=== PATIENT | male | born 1945 | race Caucasian/White ===

== ENCOUNTER 2017-11-27 09:55 | Day surgery (SDC) | payer MEDICARE, BC, SELFPAY ==
--- NOTE | 2017-11-25 09:36 | W.PIPPEYE ---
History of Present Illness Chief Complaint: Progressive decreased vision, left eye Narrative: The patient is a 71-year old gentleman who is pre-of the undergone cataract surgery in the right eye in 2017. He has an uncorrected visual acuity of 20/20 in the right eye. He has noticed progressive decreased vision in his left eye at both distance and near. He notes significant difficulty with glare from bright sunlight and headlights. The option of cataract surgery was offered to the patient and he wished to proceed. He has a moderate nuclear and cortical cataract present in the left eye. NOTE: The Chief Complaint, HPI, Past Medical History, Past Surgical History, Family History, Social History, Medications, and complete Ophthalmic Exam with detailed Assessment and Plan have already been documented in the patient's outpatient ophthalmic record and are not covered again in detail here. PFSH Medical History Pseudophakia, right eye (Chronic 09/05/16) Cortical cataract of left eye (Acute) Nuclear sclerotic cataract of left eye (Acute) Social History Smoking/Tobacco Use Status: Current-Occasional Meds Home Medications Medication Instructions Recorded Confirmed Type sertraline 50 mg PO DAILY 08/31/16 09/05/16 History sildenafil (antihypertensive) 0.5 tab PO PRN PRN 11/21/17 11/21/17 History [Revatio] Allergies Allergy/AdvReac Type Severity Reaction Status Date / Time No Known Allergies Allergy Unverified 09/05/16 08:14 Exam OCULAR EXAM:: Visual acuity at distance: Uncorrected 20/20 right eye, corrected 20/30 left eye Pupils: Pupils equal, round, and reactive without afferent pupillary defect Extraocular Motility: Normal Pertinent Slit Lamp Findings: Significant for pupils dilating to 7 mm OU. Well-positioned PCIOL OD with clear posterior capsule. A 2+ nuclear cataract with 1+ cortical cataract is present OS. Dilated Funduscopic Examination: Disc cupping is 0.3 OU with good color OD, slight pallor OS. There is an epiretinal membrane present in the right macula. Peripheral retina and vitreous is normal. The left macula is normal, with normal peripheral retina and vitreous. BRIGHTNESS ACUITY TESTING (BAT):: Off left eye 20/30 Low: 20/30 Medium: 20/40 High: 20/50 Assessment and Plan (1) Nuclear sclerotic cataract of left eye: Current visit: No Status: Acute Assessment: Visually significant cataract, left eye. Plan: Cataract extraction with intraocular lens implantation, left eye (2) Cortical cataract of left eye: Current visit: No Status: Acute Assessment: Visually significant cataract, left eye. Plan: Cataract extraction with intraocular lens implantation, left eye Note: NOTE:: The details of the planned surgery, including the risks, indications,limitations,expectations,outcome and possible complications were explained to the patient. The patient understands the complications including, but not limited to: infection, hemorrhage, posterior dislocation of the lens or nuclear fragments which may require the intervention of a vitreoretinal surgeon, possible loss of the eye, or from anesthetic complications. The patient has been made aware of the option of not having surgery, that vision following surgery may not be equal to that prior to surgery, and that the planned surgery may not achieve the intended results. Following this discussion, which the patient appeared to understand, the patient wishes to proceed with cataract surgery with lens implantation of the affected eye to improve and maximize vision.
--- NOTE | 2017-11-25 09:41 | POEE_ITS ---
History of Present Illness Chief Complaint: Progressive decreased vision, left eye Narrative: The patient is a 71-year old gentleman who is pre-of the undergone cataract surgery in the right eye in 2017. He has an uncorrected visual acuity of 20/20 in the right eye. He has noticed progressive decreased vision in his left eye at both distance and near. He notes significant difficulty with glare from bright sunlight and headlights. The option of cataract surgery was offered to the patient and he wished to proceed. He has a moderate nuclear and cortical cataract present in the left eye. NOTE: The Chief Complaint, HPI, Past Medical History, Past Surgical History, Family History, Social History, Medications, and complete Ophthalmic Exam with detailed Assessment and Plan have already been documented in the patient's outpatient ophthalmic record and are not covered again in detail here. PFSH Medical History Pseudophakia, right eye (Chronic 09/05/16) Cortical cataract of left eye (Acute) Nuclear sclerotic cataract of left eye (Acute) Social History Smoking/Tobacco Use Status: Current-Occasional Meds Home Medications Medication Instructions Recorded Confirmed Type sertraline 50 mg PO DAILY 08/31/16 09/05/16 History sildenafil (antihypertensive) 0.5 tab PO PRN PRN 11/21/17 11/21/17 History [Revatio] Allergies Allergy/AdvReac Type Severity Reaction Status Date / Time No Known Allergies Allergy Unverified 09/05/16 08:14 Exam OCULAR EXAM:: Visual acuity at distance: Uncorrected 20/20 right eye, corrected 20/30 left eye Pupils: Pupils equal, round, and reactive without afferent pupillary defect Extraocular Motility: Normal Pertinent Slit Lamp Findings: Significant for pupils dilating to 7 mm OU. Well- positioned PCIOL OD with clear posterior capsule. A 2+ nuclear cataract with 1 + cortical cataract is present OS. Dilated Funduscopic Examination: Disc cupping is 0.3 OU with good color OD, slight pallor OS. There is an epiretinal membrane present in the right macula. Peripheral retina and vitreous is normal. The left macula is normal, with normal peripheral retina and vitreous. BRIGHTNESS ACUITY TESTING (BAT):: Off left eye 20/30 Low: 20/30 Medium: 20/40 High: 20/50 Assessment and Plan (1) Nuclear sclerotic cataract of left eye: Current visit: No Status: Acute Assessment: Visually significant cataract, left eye. Plan: Cataract extraction with intraocular lens implantation, left eye (2) Cortical cataract of left eye: Current visit: No Status: Acute Assessment: Visually significant cataract, left eye. Plan: Cataract extraction with intraocular lens implantation, left eye Note: NOTE:: The details of the planned surgery, including the risks, indications, limitations,expectations,outcome and possible complications were explained to the patient. The patient understands the complications including, but not limited to: infection, hemorrhage, posterior dislocation of the lens or nuclear fragments which may require the intervention of a vitreoretinal surgeon, possible loss of the eye, or from anesthetic complications. The patient has been made aware of the option of not having surgery, that vision following surgery may not be equal to that prior to surgery, and that the planned surgery may not achieve the intended results. Following this discussion, which the patient appeared to understand, the patient wishes to proceed with cataract surgery with lens implantation of the affected eye to improve and maximize vision.
[2017-11-27 10:14] VITALS: BP 127/82; PULSE 61; RESP 18; TEMP 36.4; O2SAT 99
[2017-11-27] MEDS: Lidocaine 2% Jelly 6 ML SYR (10:54)
[2017-11-27] MEDS: Balanced Salt Soln.-PLUS 500 ML BAG (10:58)
[2017-11-27] MEDS: Povidone-Iodine Ophth 30 ML BTL (11:01)
--- NOTE | 2017-11-27 11:24 | W.PM.DSUDISC ---
Discharge Plan Discharge Details Reason For Visit: CATARACT OS Attending Provider: Jose Miguel Yanes Primary Care Provider: Mir Watson Goodman Meds and New Rx's Prescriptions: No Action sertraline 50 MG tablet 50 mg PO DAILY RF: 0 sildenafil (antihypertensive) [Revatio] 20 mg Tablet 0.5 tab PO PRN PRNRF: 0 Discharge Instructions Stand Alone Forms: Post-op Topical Cataract, Jet Chiu (DSU) DS: Diagnosis Discharge Diagnosis (1) Nuclear sclerotic cataract of left eye: Status: Resolved (2) Cortical cataract of left eye: Status: Resolved
--- NOTE | 2017-11-27 11:28 | ROE_ITS ---
Date of service: 11/27/17 Time of Service: 11:27 Operative Note DATE OF PROCEDURE: 11/27/17 PRE-OP DIAGNOSIS: Cataract, left eye POST-OP DIAGNOSIS: same PROCEDURE: Cataract extraction using phacoemulsification with intraocular lens implant, left eye SURGEON: Jose Miguel Yanes ANESTHESIA: MAC and local (sub-tenon's anesthetic infiltration) PATHOLOGY: none sent COMPLICATIONS: None Patient was transported to: same day Patient's condition: stable Implants: [employer] / [employer] Tecnis ZCB00 Indications: Progressive decreased vision due to cataract, left eye Procedure Description: CATARACT SURGERY OPERATIVE REPORT PREOPERATIVE DIAGNOSIS: Nuclear/cortical cataract, left eye POSTOPERATIVE DIAGNOSIS: Same OPERATION: Cataract extraction using phacoemulsification with posterior chamber intraocular lens implant, left eye. IOL: IOL Applications Chemist/Model: [employer] / GALLITO Tecnis ZCB00 IOL Power: +15.50 diopters IOL Serial Number: [id number] Optic Diameter: 6.0mm Haptic/Overall Diameter: 13.0mm PHACO INFO: [employer] Vision System with [employer]Zil and [employer] Cumulative Dispersed Energy (CDE): 5.47 seconds SURGEON: Jose Miguel Yanes MD, TOMASA ANESTHESIA: Monitored Anesthesia Care (MAC), with local sub-tenon's anesthetic infiltration COMPLICATIONS: None SPECIMENS: None INDICATIONS FOR PROCEDURE: The patient is a 71-year-old gentleman with history of nuclear and cortical cataracts. He has previously undergone cataract surgery in his right eye in 2017. He has done well postoperatively, achieving uncorrected vision of 20/20 in the right eye. He has now developed asymptomatic nuclear and cortical cataract in the left eye and desires cataract surgery there and attempt to improve and maximize his vision. PROCEDURE: The correct surgical eye was identified and marked as the left eye and the pupil was dilated in the preoperative area using mydriatics, cycloplegics, and NSAIDS (except in aspirin allergic patients). The dilated pupil size was 8.0 mm. Oral sedation was administered in the form of an Imprimis MKO Melt (midazolam 3mg/ketamine 25mg/ondansetron 2mg). The patient was brought to the operating room where cardiopulmonary monitoring was instituted and surgical time-out was performed, confirming the correct operative eye and IOL power. Topical anesthesia was administered and ophthalmic povidone-iodine 5% was instilled into the conjunctival fornices. Lidocaine gel was applied to the cornea and the kana-ocular area was prepped with Betadine 10% solution and draped in the usual sterile fashion for intraocular surgery. Steri-strips were used to cover the lashes and lid margins and an adhesive eye drape was placed. Care was taken to isolate the lashes and lid margins under the Steri-strips and adhesive eye drape. A lid speculum was placed between the lids of the operative eye and the Kimberley-Kamran operating microscope was maneuvered into position. Shalom scissors were then used to make a conjunctival buttonhole approximately 6mm posterior to the limbus in the inferonasal quadrant. Blunt dissection was carried out to expose bare sclera, and a blunt-tipped sub-tenon? s anesthesia cannula was introduced and passed posteriorly along the globe where non-preserved plain lidocaine was injected into posterior sub-Tenon?s space. A sideport knife was used to make a paracentesis port at the 12:00 postion and the anterior chamber was filled with Healon GV. A 2.4mm keratome knife was used to create a half-thickness groove at the limbus and then to construct a three-plane near-clear corneal tunnel extending 2.0mm into clear cornea at the 3:00 position. A flap was raised on the anterior capsule and capsulorhexis forceps were used to complete a continuous curvilinear capsulorhexis of 5.5mm. Balanced salt solution was then used to perform cortical cleaving hydrodissection and nuclear hydrodelineation until the lens could be freely rotated within the capsular bag. The lens nucleus was then disassembled and removed within the capsular bag and iris plane using phacoemulsification. Residual cortical material was removed using the 45-degree angled silicone I/A tip with 0.3mm port. The posterior capsule was carefully polished to remove as much residual lens epithelial cells as safely possible. The capsular bag was then inflated and the anterior chamber deepened with viscoelastic. The lens implant described above was inserted into the capsular bag using the GALLITO Emmonak Injector. A Kuglen hook was used to dial the IOL into position. Residual viscoelastic was then removed first from posterior to the IOL, then from the anterior chamber using the I/A handpiece. The lens implant was noted to center nicely within the capsular bag. The incisions were stromally hydrated , and the anterior chamber was reformed using BSS. Then 0.4cc of moxifloxacin 1.5mg/ml were injected into the capsular bag and anterior chamber. The incisions were checked with a Weck spear and found to be secure. Several drops of ophthalmic povidone-iodine 5% were then applied to the eye followed by two drops of Imprimis combination moxifloxacin/dexamethasone solution. The drapes were removed and a clear plastic protective eye shield was placed over the eye. The patient was then returned to [facility] in stable condition.
[2017-11-27 11:43] VITALS: BP 132/88; PULSE 66; RESP 18; TEMP 36.5; O2SAT 99
== END 2017-11-27 11:50 | disposition home or self-care (01) ==
LOC: SUR 09:56
PROVIDERS: PCP Neuromusculoskeletal Medicine & OMM; Visit Provider Ophthalmology
PROC: (CPT 66984; principal; 2017-11-27 12:30)
DX: H25.812 Combined forms of age-related cataract, left eye (principal); Z98.41 Cataract extraction status, right eye; Z96.1 Presence of intraocular lens
CPT/HCPCS: 66984; V2632